=== PATIENT | female | born 1970 | race Caucasian/White ===

== ENCOUNTER → 2022-02-15 | Outpatient (CLI) | payer BC ==
[~2022-02-15] MED LIST: NAPROSYN500 MG PO; NAPROXEN250 MG PO; NEXIUM40 MG PO; PERCOCET 5-3251 EACH PO; PHENERGAN 12.12.5 M1 PO; STOOL SOFTENER250 MG PO; TYLENOL 500 MG500 MG PO
== END ==
LOC: KOH-I 08:03
DX: S83.206A Unspecified tear of unspecified meniscus, current injury, right knee, initial encounter (principal); M22.41 Chondromalacia patellae, right knee
CPT/HCPCS: 73721